=== PATIENT | male | born 1945 | race Caucasian/White ===

== ENCOUNTER → 2017-05-11 | Outpatient (CLI) | payer OTHER | LOC: EDSTATUS 11:59 → CIMAGING 16:44 | PROVIDERS: ATTEND Physician Assistant | DX: K59.00 Constipation, unspecified (principal); R10.9 Unspecified abdominal pain | CPT/HCPCS: 74020-PO ==

== ENCOUNTER → 2017-06-10 | Outpatient (CLI) | payer OTHER ==
[~2017-06-10] MED LIST: GADOBUTROL 10 ML VIAL IVP ONE
== END ==
LOC: FIMAGING 14:09
PROVIDERS: ATTEND Internal Medicine Hematology & Oncology
DX: M50.31 Other cervical disc degeneration, high cervical region (principal); M50.321 Other cervical disc degeneration at C4-C5 level; M50.322 Other cervical disc degeneration at C5-C6 level; M50.323 Other cervical disc degeneration at C6-C7 level; M12.88 Other specific arthropathies, not elsewhere classified, other specified site; M48.02 Spinal stenosis, cervical region; M99.71 Connective tissue and disc stenosis of intervertebral foramina of cervical region; C61 Malignant neoplasm of prostate
CPT/HCPCS: 72156; A9585

== ENCOUNTER 2017-06-29 12:27 | Inpatient (IN) | payer OTHER ==
--- NOTE | 2017-06-29 12:49 | EDPHY ---
H & P Time Seen by Provider: 06/29/17 12:48 HPI/ROS: Chief complaint. Rectal pain and diarrhea HPI. 72-year-old male states for prostate cancer. Much of his treatment has been at [facility]. He is also seeing Sujatha Ingram at [facility]. The past 3-6 weeks he has had change in bowel movements and has had increasing reliance using suppositories. He saw Dr. Rodriguez last week who did a digital exam and he has had increased frequency of bowel movements since. 3 days ago he had diarrhea and then had mucus discharge yesterday. At 2:00 a.m. he felt he had a blockage in was not passing gas or stool. He had some nausea but no vomiting. He tried a glycerin suppository this morning with production of gas and stool. On June 08 the also had a catheter change and developed urinary tract infection was treated with Bactrim. He has been having bladder spasms and then restarted Bactrim 4 days ago as a phone in prescription from urologist. Blood work last week showed decreased hemoglobin and hematocrit. He has not had any blood per rectum. He is concerned about the diarrhea and mucous discharge. He feels his rectum is quite inflamed. Otherwise he has had no fever, chest pain, shortness of breath, abdominal pain ROS Constitutional. no fever/chills, no weakness Eyes. no problems with vision ENT. no sore throat, no nasal drainage Cardiovascular. no chest pain Respiratory. no shortness of breath, no cough Abdominal. Nausea and diarrhea . Bladder spasms with catheter and being treated for urinary tract infection MS. no calf pain/swelling, no neck/back pain, no joint pain Skin. no rash Lymph. no swollen glands Neuro. no headache, no dizziness, no difficulty walking or with speech Past Medical/Surgical History: Metastatic prostate cancer, hypertension Social History: , nonsmoker, no alcohol Smoking Status: Never smoked Physical Exam: General Appearance: Alert well-developed male moderate distress vital signs are stable Eyes: Pupils equal and round no pallor or injection. ENT, Mouth: Mucous membranes are moist. Respiratory: There are no retractions, lungs are clear to auscultation. Cardiovascular: Regular rate and rhythm. Gastrointestinal: Abdomen is soft and nontender, no masses, bowel sounds normal. Rectal exam shows brown stool. I do not feel particular tightness in the rectum. I do not feel any masses. Neurological: Awake and alert, sensory and motor exams grossly normal. Skin: Warm and dry, no rashes. Musculoskeletal: Neck is supple nontender. Extremities symmetrical, full range of motion. Psychiatric: Patient is oriented X 3, there is no agitation. Constitutional: Initial Vital Signs Temperature (C) 36.9 C 06/29/17 12:32 Heart Rate 57 L 06/29/17 12:32 Respiratory Rate 14 06/29/17 12:32 Blood Pressure 156/77 H 06/29/17 12:32 O2 Sat (%) 98 06/29/17 12:32 O2 Delivery Mode Room Air Allergies/Adverse Reactions: amoxicillin [From Augmentin] Allergy (Verified 06/29/17 12:30) clavulanic acid [From Augmentin] Allergy (Verified 06/29/17 12:30) Medical Decision Making - Diagnostics Imaging Results: Imaging Impressions Abdomen CT 06/29/17 15:44 Impression: 1. Concentric abnormal thickening of the rectum below the peritoneal reflection , most concerning for infiltrative neoplasm (with a segmental colitis considered less likely); endoscopic correlation is recommended. There is also a 1.4 cm right perirectal lymph node, as well as some nonspecific upper abdominal lymph nodes seen near the celiac axis and the precaval space. 2. Mild prostate gland enlargement with the provided history of prostate cancer. 3. Osteoblastic lesions concerning for metastases. Correlation with a PSA value is suggested. 4. Nonobstructive left nephrolithiasis with a simple-appearing lower pole left renal cortical cyst. Findings were discussed with KANDICE HOLLOWAY MD at 17:49, on 06/29/2017. CT abdomen with IV contrast shows a circumferential rectal hourglass shaped lesion in the rectum. There is upstream constipation. This concerning for rectal cancer Procedures: Patient would like to apply lidocaine jelly prior to rectal exam. He self administers lidocaine jelly. In discussion of obtaining stool for further studies he tells me he needs a glycerin suppository to produce any stool. He is given a glycerin suppository ED Course/Re-evaluation: IV normal saline. Serial evaluations patient is stable. The patient and I and his discussed imaging and lab results. We talked about treatment plan and the patient is offered admission. I have spoken to Dr. Rodriguez regarding admission. Dr. Rodriguez is willing to admit the patient. The patient and his would like to talk further about this. At 7:30 p.m. the patient his decided that he would like to be admitted. He tells me his goals are to have a colorectal specialist as well as to be guaranteed to have intact rectum and urinary symptoms when his prostate cancer treatment is over. The patient and I discussed that there can be no guarantees and that there is no colorectal surgeon here in [place]. He would still like to be admitted and have consultation with Dr. Rodriguez I have again discussed the patient's case with Dr. Rodriguez and he agrees to admission. Differential Diagnosis: Patient with metastatic prostate cancer and having bowel symptoms with intermittent diarrhea. It appears that he has a narrowing and lesion in the rectum consistent with either rectal cancer or spread of prostate cancer. Dr. Rodriguez feels the patient needs a colostomy. The patient is not really quite ready to have a colostomy but would is having enough symptoms that he will be admitted. - Data Points Laboratory Results: Laboratory Results 06/29/17 14:10 06/29/17 14:10 06/29/17 06/29/17 06/29/17 15:24 14:10 14:10 WBC 6.47 10^3/uL 10^3/uL (3.80-9.50) RBC 3.97 10^6/uL L 10^6/uL (4.40-6.38) Hgb 12.1 g/dL L g/dL (13.7-17.5) Hct 34.8 % L % (40.0-51.0) MCV 87.7 fL fL (81.5-99.8) MCH 30.5 pg pg (27.9-34.1) MCHC 34.8 g/dL g/dL (32.4-36.7) RDW 13.5 % % (11.5-15.2) Plt Count 164 10^3/uL 10^3/uL (150-400) MPV 10.4 fL fL (8.7-11.7) Neut % (Auto) 66.7 % % (39.3-74.2) Lymph % (Auto) 21.6 % % (15.0-45.0) [place] % (Auto) 7.6 % % (4.5-13.0) Eos % (Auto) 3.1 % % (0.6-7.6) Baso % (Auto) 0.8 % % (0.3-1.7) Nucleat RBC Rel Count 0.0 % % (0.0-0.2) Absolute Neuts (auto) 4.32 10^3/uL 10^3/uL (1.70-6.50) Absolute Lymphs (auto) 1.40 10^3/uL 10^3/uL (1.00-3.00) Absolute Monos (auto) 0.49 10^3/uL 10^3/uL (0.30-0.80) Absolute Eos (auto) 0.20 10^3/uL 10^3/uL (0.03-0.40) Absolute Basos (auto) 0.05 10^3/uL 10^3/uL (0.02-0.10) Absolute Nucleated RBC 0.00 10^3/uL 10^3/uL (0-0.01) Immature Gran % 0.2 % % (0.0-1.1) Immature Gran # 0.01 10^3/uL 10^3/uL (0.00-0.10) Sodium 143 mEq/L mEq/L (134-144) Potassium 4.0 mEq/L mEq/L (3.5-5.2) Chloride 107 mEq/L mEq/L (97-110) Carbon Dioxide 25 mEq/l mEq/l (22-31) Anion Gap 11 mEq/L mEq/L (8-16) BUN 13 mg/dL mg/dL (7-23) Creatinine 0.9 mg/dL mg/dL (0.7-1.3) Estimated GFR > 60 Glucose 85 mg/dL mg/dL (70-100) Calcium 9.4 mg/dL mg/dL (8.5-10.4) Total Bilirubin 0.5 mg/dL mg/dL (0.1-1.4) Conjugated Bilirubin 0.3 mg/dL mg/dL (0.0-0.5) Unconjugated Bilirubin 0.2 mg/dL mg/dL (0.0-1.1) AST 34 IU/L IU/L (17-59) ALT 47 IU/L IU/L (21-72) Alkaline Phosphatase 73 IU/L IU/L (38-126) Total Protein 6.5 g/dL g/dL (6.3-8.2) Albumin 3.7 g/dL g/dL (3.5-5.0) Urine Color YELLOW Urine Appearance MODERATELY TURBID Urine pH 6.0 (5.0-7.5) Ur Specific [place] 1.004 (1.002-1.030) Urine Protein NEGATIVE (NEGATIVE) Urine Ketones NEGATIVE (NEGATIVE) Urine Blood 1+ H (NEGATIVE) Urine Nitrate NEGATIVE (NEGATIVE) Urine Bilirubin NEGATIVE (NEGATIVE) Urine Urobilinogen NEGATIVE EU EU (0.2-1.0) Ur Leukocyte Esterase TRACE H (NEGATIVE) Urine RBC 1-3 /hpf /hpf (0-3) Urine WBC 1-3 /hpf /hpf (0-3) Ur Epithelial Cells NONE SEEN /lpf /lpf (NONE-1+) Urine Bacteria 4+ /hpf H /hpf (NONE SEEN) Urine Mucus TRACE /lpf /lpf (NONE-1+) Urine Glucose NEGATIVE (NEGATIVE) Stool Occult Bld Scrn C. difficile Tox (PCR) 06/29/17 13:30 WBC RBC Hgb Hct MCV MCH MCHC RDW Plt Count MPV Neut % (Auto) Lymph % (Auto) [place] % (Auto) Eos % (Auto) Baso % (Auto) Nucleat RBC Rel Count Absolute Neuts (auto) Absolute Lymphs (auto) Absolute Monos (auto) Absolute Eos (auto) Absolute Basos (auto) Absolute Nucleated RBC Immature Gran % Immature Gran # Sodium Potassium Chloride Carbon Dioxide Anion Gap BUN Creatinine Estimated GFR Glucose Calcium Total Bilirubin Conjugated Bilirubin Unconjugated Bilirubin AST ALT Alkaline Phosphatase Total Protein Albumin Urine Color Urine Appearance Urine pH Ur Specific [place] Urine Protein Urine Ketones Urine Blood Urine Nitrate Urine Bilirubin Urine Urobilinogen Ur Leukocyte Esterase Urine RBC Urine WBC Ur Epithelial Cells Urine Bacteria Urine Mucus Urine Glucose Stool Occult Bld Scrn NEGATIVE (NEGATIVE) C. difficile Tox (PCR) TNP Medications Given: Discontinued Medications Glycerin (Glycerin Adult) 1 each [place] ONCE ONE Stop: 06/29/17 13:33 Last Admin: 06/29/17 17:29 Dose: Not Given Departure - Departure Disposition: [facility] In[facility] Acute Clinical Impression: Rectal abnormality, Prostate cancer metastatic to bone Condition: Fair Referrals: GAL ROBERTSON [Primary Care Provider] - As per Instructions
[2017-06-29] MEDS ORDERED: NS 1,000 ML IV ONE (13:26)
[2017-06-29] MEDS ORDERED: GLYCERIN ADULT 1 EACH SUPP PR ONE (13:32)
[2017-06-29 14:23] LABS: PLATELET COUNT 164 10^3/uL (150-400)
[2017-06-29] MEDS ORDERED: IOPAMIDOL (ISOVUE-300) 100 ML BTL ONE (15:50)
[2017-06-29] MEDS ORDERED: HYDROmorphONE/DILAUDID 1 MG/ML INJ IVP PRN (21:45)
[2017-06-29] MEDS ORDERED: ONDANSETRON 4 MG/2 ML VIAL IVP PRN (21:45)
[2017-06-29] MEDS ORDERED: LOTEPREDNOL 0.5% OPHT GEL 5GM EACHEYE PRN (21:45)
[2017-06-29] MEDS ORDERED: OXYBUTYNIN CHLORIDE 5 MG TAB PO PRN (21:45)
[2017-06-29] MEDS ORDERED: ACETAMINOPHEN 325 MG TAB PO PRN (21:45)
[2017-06-29] MEDS ORDERED: DIAZEPAM 5 MG TAB PO PRN (21:45)
[2017-06-29] MEDS ORDERED: LORazepam 1 MG TAB PO PRN (21:45)
--- NOTE | 2017-06-29 22:21 | GHP ---
[f rep st] HISTORY AND PHYSICAL DATE OF ADMISSION: 06/29/2017 CHIEF COMPLAINT: Rectal obstruction. HISTORY OF PRESENT ILLNESS: This is a 72-year-old male with history of stage IV metastatic prostate cancer who was seen by Dr. Rodriguez on Wednesday in clinic for rectal stenosis. He had a rectal exam do and since the exam had frequent stools. Today, he states that he felt obstructed. He strained to pass a small amount of stool this morning. He had diarrhea on Wednesday. He has been eating very nidhi le. He denies any pain at the moment. He has been having some arm weakness attributed to cervical s pondylosis. The patient is followed by Dr. Ingram locally for his prostate cancer and also seeks care outside of [place]. PAST MEDICAL HISTORY: 1. Stage IV metastatic prostate cancer. 2. Chronic Real catheter and a urinary tract infection, currently on Bactrim. 3. Hypertension. 4. Cervical spondylosis. 5. Bilateral lower extremity neuropathy. MEDICATIONS: Please refer to [facility] for details. ALLERGIES: Augmentin, but not allergic to penicillin. SOCIAL HISTORY: He is and lives in [place]. He denies any alcohol, tobacco, or illicit drug u se. FAMILY HISTORY: Reviewed and noncontributory. REVIEW OF SYSTEMS: Comprehensive 10-point review of systems was done and is negative, except for as mentioned in the HPI. PHYSICAL EXAMINATION: VITAL SIGNS: Blood pressure 172/75, heart rate 75, respiratory rate 16, O2 sa turation 95% on room air. Temperature afebrile. GENERAL: No acute distress. HEAD: Normocephalic, atraumatic. EYES: PERRLA. Sclerae anicteric. MOUTH: Moist mucous membranes. NECK: Supple. No lymphadenopathy. CARDIOVASCULAR: S1, S2. No murmurs, rubs, clicks, or gallops. No JVD. No lower extremity edema. PULMONARY: Lungs are clear. No wheezes, rales, or rhonchi. ABDOMEN: Soft, nont say, nondistended. No guarding or rebound tenderness. Normoactive bowel sounds. EXTREMITIES: No clubbing or cyanosis. NEUROLOGIC: Cranial nerves 2-12 grossly intact. No focal motor or sensory d eficits. SKIN: Clear. No rashes. DIAGNOSTICS: CT of the abdomen and pelvis was reviewed, showing concentric abnormal thickening of th e rectum below the peritoneal reflection most concerning for infiltrative neoplasm. Please see repor t for full details. WBC 6.47, hemoglobin 12.1, hematocrit 34.8, platelets 164. Sodium 143, potassiu m 4, chloride 107, BUN 13, creatinine 0.9, glucose 85. LFTs unremarkable. UA: 1+ blood, trace leuk ocyte esterase, 4+ bacteria. Stool occult blood was negative. ASSESSMENT AND PLAN: This is a 72-year-old male with stage IV prostate cancer on Zytiga and Lupron p resenting with: 1. Rectal obstruction with CT showing thickening of the rectum most likely due to invasive prostate cancer. Plan: The patient was seen by Dr. Americo Rodriguez in the emergency department, who offered di verting colostomy which the patient does not want to do before getting a second opinion. At this belén e, the patient would like to have a rectal biopsy and possible repeat prostate biopsy in the morning. The patient also requests having an enema in the morning, which will be ordered. He states that hi s rectal area is quite tender and has requested some IV narcotics to be done prior to the enema, whic h sounds reasonable. We will order IV Dilaudid to be done before the enema. 2. Recently treated urinary tract infection. Currently on Bactrim. Plan: Will send urine for cult ure. 3. The patient requests to be full code status. /[id number]/MODL
[2017-06-29] MEDS: DOCUSATE SODIUM 100 MG CAP PO SCH (22:39)
[2017-06-29] MEDS: POLYETHYLENE GLYCOL 3350 17 GM PKT PO SCH (22:40)
--- NOTE | 2017-06-30 00:06 | SOAPPROG ---
SOAP Progress Note Assessment/Plan: Assessment: 72 MALE WITH METASTATIC PROSTATE CANCER PRESENTING WITH WORSENING RECTAL OBSTRUCTION PT HAS REFUSED COLOSTOMY DESPITE HIS GREAT DIFFICULTY HAVING A BOWEL MOVEMENT ABDOMEN IS SOFT AND SLIGHTLY DISTENDED WITH ACTIVE BOWEL SOUNDS RECTAL EXAM REVEALS A TIGHT ANAL CANAL WITH OBVIOUS CIRCUMFERENTIAL TUMOR CHEST CLEAR/COR REGULAR RHYTHM IMPRESSION: NEAR COMPLETE RECTAL OBSTRUCTION SECONDARY TO INVASIVE PROSTATE CANCER/PATIENT NEEDS A COLOSTOMY BUT HE IS REFUSING AT THIS TIME Plan: ADMIT FOR OBSERVATION, ENEMA, POSSIBLE PORT PLACEMENT, FLEX SIG AND RECTAL BIOPSY 06/30/17 00:04 07/02/17 19:12 Objective: Vital Signs Temp Pulse Resp BP Pulse Ox 36.9 C 56 L 16 124/76 H 93 06/29/17 21:59 06/29/17 21:59 06/29/17 21:59 06/29/17 21:59 06/29/17 21:59 06/28/17 06/29/17 06/30/17 05:59 05:59 05:59 Intake Total 1000 Output Total 850 Balance 150 ICD10 Worksheet Patient Problems: Problems Problem Status Onset Prostate cancer metastatic to bone Acute Rectal abnormality Acute
--- NOTE | 2017-06-30 04:41 | PDMN ---
Medical Necessity Medical necessity: poss. pending [id number] bowel sgy: pt with rectal obstruction awaiting 2nd opinion, further monitoring, eval needed -pending biopsy in am
[2017-06-30] MEDS: GABAPENTIN 300 MG CAP PO SCH ×2 (05:03→11:57)
[2017-06-30] MEDS ORDERED: Abiraterone Acetate [Zytiga] 250 MG PO SCH (07:00)
[2017-06-30] MEDS ORDERED: MULTIVITAMINS 1 EACH TAB PO SCH (09:00)
[2017-06-30] MEDS ORDERED: OMEGA-3 FATTY ACIDS 1,000 MG CAP PO SCH (09:00)
[2017-06-30] MEDS ORDERED: TAMSULOSIN HCL 0.4 MG CAP PO SCH (09:00)
[2017-06-30] MEDS ORDERED: ALLOPURINOL 300 MG TAB PO SCH (09:00)
[2017-06-30] MEDS ORDERED: ESCITALOPRAM OXALATE 10 MG TAB PO SCH (09:00)
[2017-06-30] MEDS ORDERED: NIACIN 500 MG TAB PO SCH (09:00)
[2017-06-30] MEDS ORDERED: BENEFIBER/NUTRISOURCE FIBER PKT 1 EACH PO SCH (09:00)
[2017-06-30] MEDS ORDERED: SULFAMETHOX/TMP 800/160 MG 1 TAB PO SCH (09:00)
[2017-06-30] MEDS ORDERED: predniSONE 5 MG TAB PO SCH (09:00)
[2017-06-30] MEDS ORDERED: ENOXAPARIN 40 MG/0.4 ML SYR SC SCH (09:00)
[2017-06-30] MEDS ORDERED: LISINOPRIL 10 MG TAB PO SCH (09:00)
[2017-06-30] MEDS: DOCUSATE SODIUM 100 MG CAP PO SCH (09:30)
[2017-06-30] MEDS: POLYETHYLENE GLYCOL 3350 17 GM PKT PO SCH (09:31)
[2017-06-30] MEDS ORDERED: LORazepam 2 MG/ML INJ IVP ONE (10:53)
[2017-06-30] MEDS ORDERED: ERTAPENEM 1 GM VIAL IVP ONE ×2 (13:01→15:30)
--- NOTE | 2017-06-30 13:28 | HOSPPROG ---
Hospitalist Progress Note Assessment/Plan: 72y male with c/o rectal pain. First encounter, chart reviewed. D/w surgery. #Rectal thickening bx today enema likely CA per surgery needs ostomy will get second opinion #Rectal obstruction needs ostomy enema #Recent UTI cont meds #Hx of prostate CA port placement today in OR #Dispo will hopefully dc today after surgery Subjective: Having diarrhea. Still uncomfortable. Objective: Vital Signs Temp Pulse Resp BP Pulse Ox 37.1 C 62 18 104/68 93 06/30/17 10:57 06/30/17 10:57 06/30/17 10:57 06/30/17 10:57 06/30/17 10:57 06/29/17 06/30/17 07/01/17 05:59 05:59 05:59 Intake Total 1000 Output Total 1650 Balance -650 - Physical Exam Constitutional: no apparent distress, appears nourished, uncomfortable Eyes: PERRL, anicteric sclera, EOMI Ears, Nose, Mouth, Throat: moist mucous membranes, hearing normal, ears appear normal Cardiovascular: regular rate and rhythym, No JVD, No edema Respiratory: no respiratory distress, no rales or rhonchi, reduced air movement Gastrointestinal: normoactive bowel sounds, No tenderness, No ascites Skin: warm, normal color, No mottled Musculoskeletal: normal joint ROM, no joint effusions, generalized weakness Neurologic: AAOx3 Psychiatric: not anxious, not encephalopathic, thought process linear ICD10 Worksheet Patient Problems: Problems Problem Status Onset Rectal abnormality Acute Prostate cancer metastatic to bone Acute
--- NOTE | 2017-06-30 14:14 | SOAPPROG ---
SOAP Progress Note Assessment/Plan: Assessment/Plan: 72 Y M prostate CA c obstructing rectal mass, metastatic prostate CA vs new primary rectal CA. To OR today for port and rectal biopsies. Discussed with Drs. Rodriguez and Sujatha Ingram today. Risks and options discussed in detail with patient and . Consent signed and in chart. Ppx abx ordered. Recommended colostomy but patient wishes to have second opinion. He has plans to see a colorectal surgeon in [place] tomorrow. He is hopeful for discharge this evening after surgery to make his appointment in the morning. S: diarrhea and rectal pain and pressure. O: alert, nad no jaundice mmm no wob rrr abd softly bloated rectal deferred 06/30/17 14:10 Objective: Vital Signs Temp Pulse Resp BP Pulse Ox 37.1 C 62 18 104/68 93 06/30/17 10:57 06/30/17 10:57 06/30/17 10:57 06/30/17 10:57 06/30/17 10:57 06/29/17 06/30/17 07/01/17 05:59 05:59 05:59 Intake Total 1000 Output Total 1650 Balance -650 ICD10 Worksheet Patient Problems: Problems Problem Status Onset Prostate cancer metastatic to bone Acute Rectal abnormality Acute
[2017-06-30] MEDS ORDERED: BACITRACIN ZINC 14.2 GM OINTTUBE TP ONE (15:05)
[2017-06-30] MEDS ORDERED: BUPIVACAINE 0.5% 30 ML SDV ONE (15:06)
[2017-06-30] MEDS ORDERED: LIDOCAINE 1% 300 MG/30 ML SDV ONE (15:06)
[2017-06-30] MEDS ORDERED: LR 1,000 ML IV ONE (15:14)
[2017-06-30] MEDS ORDERED: MIDAZOLAM 2 MG/2 ML VIAL IVP ONE (15:18)
--- NOTE | 2017-06-30 15:19 | GCON ---
[f rep st] CONSULTATION ONCOLOGY CONSULTATION NOTE DATE OF CONSULTATION: 06/30/2017 REASON FOR CONSULTATION: Metastatic prostate carcinoma. HISTORY OF PRESENT ILLNESS: The patient is a 72-year-old gentleman who is followed by my partner, Dr Deborah Ingram. He was diagnosed with metastatic prostate carcinoma recently. His history dates back to May of 2015. He had a mildly elevated PSA. This was initially followed. In July of s year, he developed prostatitis symptoms. His PSA was markedly elevated at that time. He had a pro state biopsy done which revealed a Annabel 5 + 5 equals 10 adenocarcinoma. The initial pathology sug gested small cell features. A staging CT revealed local regional disease with involvement of pelvic bones and extension into the rectum. The patient was initially treated with bicalutamide, and Lupron . He was then started on Zytiga in March. He has developed urinary retention and has a chronic Real catheter in place. More recently, he has been seen by Dr. Katie Mccabe at [facility]. Consideration of c abazitaxel and carboplatin was recommended. The patient recently established with Dr. Ingram locally . Recently, he has had increasing difficulty moving his bowels, suggestive of a pending rectal obstruct ion. He presented to the emergency room yesterday with obstructive symptoms. A CT of the abdomen an d pelvis was performed. This revealed concentric abnormal thickening throughout the rectum below the level of peritoneal reflection. Mild prostatic enlargement was noted. Multiple osteoblastic lesion s were noted. There was nonobstructive left nephrolithiasis. The patient is scheduled to undergo a flexible sigmoidoscopy with biopsy later today to confirm metas tatic prostate carcinoma as the cause of his rectal obstruction. He has met with Dr. Rodriguez of general surgery. A palliative diverting colostomy has been recommended. The patient was initially reluctant to consider this procedure, but given the severity of his sympt oms has now decided to proceed, and this is tentatively scheduled for Wednesday. The patient states he plans to meet with a colorectal surgeon at [facility] tomorrow to discuss long- term options including the option of eventual long-term reanastomosis. When seen today, his is at the bedside. Dr. Mccabe's PA is also present by telephone (Vanessa). PAST MEDICAL HISTORY: 1. Metastatic prostate carcinoma as outlined above. 2. Cervical spine stenosis with associated upper extremity weakness. 3. Left arm radiculopathy. 4. History of bilateral nephrolithiasis. 5. History of sarcoidosis. 6. Gout. 7. Hypertension. 8. Hyperlipidemia. 9. Remote history of malaria (1989). PAST SURGICAL HISTORY: 1. Bronchoscopy 1969. 2. Vitrectomy for uveitis, right eye. SOCIAL HISTORY: The patient is to his . He has a remote history of smoking. He and his live in [place], [place]. He has no children. REVIEW OF SYSTEMS: As outlined above. Denies abdominal pain. Denies chest pain or cough. Denies b one pain at the current time. Denies fevers or chills. The patient does have a chronic indwelling F oley in place. Denies extremity swelling or edema. PHYSICAL EXAMINATION: GENERAL APPEARANCE: Patient is sitting comfortably on the edge of the bed. H e is in no acute distress. HEENT: Pupils are equal. Sclerae nonicteric. ABDOMEN: Soft, nontender , nondistended. RECTAL: Digital rectal exam is deferred. EXTREMITIES: No extremity swelling or kameron ma. NEUROLOGIC: Patient is alert, oriented, and appropriate. IMAGING DATA: CT results as per HPI. LABORATORY STUDIES: White count 6.4, hemoglobin 12.1. Platelet count is 164,000. BUN 13, creatinin e 0.9. Liver function tests are unremarkable. A serum CEA was drawn and is normal with a value of 2 .43. IMPRESSION: 1. Metastatic high-grade prostate carcinoma. 2. Rectal obstruction, likely due to infiltration from #1. 3. Urinary retention with chronic indwelling Real catheter. 4. Osseous metastatic disease secondary to #1. The patient is a pleasant 72-year-old gentleman with high-grade metastatic prostate carcinoma who pre sents with worsening rectal obstruction due to tumor infiltration. The patient is scheduled to under go a flexible sigmoidoscopy later today. Biopsies will be performed. I had a fairly lengthy discussion with the patient and his concerning his options. Dr. Mccabe 's physician's district administrative assistant, Vanessa, was also present by telephone. I explained to the patient that at this point, he has evidence of fairly high-grade obstruction, whic h I do not believe would be quickly palliated with either radiation or chemotherapy. I agree with Dr Deborah Rodriguez's assessment that the patient would be best served with a palliative diverting colostomy at t his point. After much thought, the patient states he is now considering this and has tentatively kate eduled this to be done this coming Wednesday. He does inform me he plans to seek an opinion of a colorectal surgeon at [facility] tomorrow to dis cuss his long-term options in terms of reanastomosis or further surgery. Again, he does plan to proc eed with a diverting colostomy later this week. Assuming that the patient's biopsy confirms high-grade prostate carcinoma, chemotherapy will be start ed within the next 2-3 weeks. This will be done by Dr. Ingram in the outpatient setting. She will c onfer with Dr. Mccabe at [facility] to decide on a final regimen. The option of cabazitaxel and c arboplatin has been discussed. If the patient's biopsy demonstrates small cell features, then certai nly carboplatin, etoposide could be considered. The patient would like to be discharged later today after his flexible sigmoidoscopy. He has met [facility] Dr. Rodriguez and again evidently is tentatively scheduled for surgery on Wednesday. He will follow up [facility] Dr. Ingram. Dr. Ingram is aware of his admission and we have discussed his case. I think sending his biopsy specimen for a foundation profile would be advisable in terms of expanding his future treatment options. The patient and his had multiple questions which were answered to their satisfaction. He will follow up with Dr. Ingram after discharge. Total time for today's visit was approximately 60 minutes of which greater than 50% was spent in coun seling and care coordination. /[id number]/MODL
--- NOTE | 2017-06-30 15:22 | PDANEPAE ---
ANE Past Medical History - Cardiovascular History Hx Hypertension: No Hx Arrhythmias: No Hx Chest Pain: No Hx Coronary Artery / Peripheral Vascular Disease: No Hx CHF / Valvular Disease: No Hx Palpitations: No - Pulmonary History Hx COPD: No Hx Asthma/Reactive Airway Disease: No Hx Recent Upper Respiratory Infection: No Hx Oxygen in Use at Home: No Hx Sleep Apnea: Yes Sleep Apnea Screening Result - Last Documented: Positive - Endocrine History Hx Diabetes: No Hypothyroid: No Hyperthyroid: No Obesity: no - GI History GERD: no Hx Gastrointestinal Disorders: Yes - Chronic Pain History Chronic Pain: No ANE Review of Systems Review of Systems: - Exercise capacity METS (RN): 5 METS - Systems Gastrointestinal: Reports: rectal pain ANE Patient History - Allergies Allergies/Adverse Reactions: amoxicillin [From Augmentin] Allergy (Verified 06/29/17 12:30) clavulanic acid [From Augmentin] Allergy (Verified 06/29/17 12:30) - Home Medications Home Medications: Abiraterone Acetate [Zytiga] 1,000 mg PO DAILY 06/29/17 [Last Taken Unknown] Allopurinol [Allopurinol 300 MG (RX)] 300 mg PO DAILY 06/29/17 [Last Taken Unknown] Diazepam [Valium 10 MG (*)] 10 mg PO DAILY PRN 06/29/17 [Last Taken 06/29/17] Docusate Sodium [Colace 100 MG (*)] 100 mg PO TID 06/29/17 [Last Taken Unknown] Escitalopram Oxalate [Lexapro] 10 mg PO DAILY 06/29/17 [Last Taken 06/29/17] Gabapentin [Neurontin 300 MG (*)] 600 mg PO QID 06/29/17 [Last Taken 06/28/17] Guar Gum [Benefiber/Nutrisource Fiber (*)] 1 each PO DAILY 06/29/17 [Last Taken 06/29/17] Herbals/Supplements -Info Only 1 ea PO DAILY 06/29/17 [Last Taken Unknown] Ibuprofen [Motrin (*)] 200 - 600 mg PO DAILY PRN 06/29/17 [Last Taken 06/28/17] LORazepam [Ativan (*)] 1 mg PO DAILY PRN 06/29/17 [Last Taken 06/29/17] Leuprolide Acetate [Lupron Depot] 7.5 mg IM Q30D 06/29/17 [Last Taken Unknown] Lisinopril [Zestril 10 mg (*)] 10 mg PO DAILY 06/29/17 [Last Taken 06/29/17] Loteprednol 0.5% [Lotemax0.5% Gel] 1 drops EACHEYE QID PRN 06/29/17 [Last Taken Unknown] Multivitamins [Multivitamin (*)] 1 each PO DAILY 06/29/17 [Last Taken Unknown] Niacin [Niacin 500 mg (*)] 500 mg PO DAILY 06/29/17 [Last Taken Unknown] Ballantine-3 Fatty Acids [Fish Oil 1000 mg (*)] 1,000 mg PO BID 06/29/17 [Last Taken Unknown] Oxybutynin Chloride [Ditropan 5mg (RX)] 5 mg PO DAILY PRN 06/29/17 [Last Taken 06/29/17] Polyethylene Glycol 3350 [Miralax 17 gm (*)] 17 gm PO TID 06/29/17 [Last Taken 06/29/17] Sulfamethox/Tmp 800/160 mg [Bactrim Ds] 1 tab PO BID 06/29/17 [Last Taken ] Tamsulosin HCl [Flomax 0.4 MG (*)] 0.4 mg PO DAILY 06/29/17 [Last Taken Unknown] Zolpidem Tartrate [Ambien 5MG (*)] 5 - 10 mg PO HS 06/29/17 [Last Taken 06/28/17 ] predniSONE 5 mg PO BID 06/29/17 [Last Taken 06/29/17 AM] - NPO status NPO Since - Liquids (Date): 06/30/17 NPO Since - Liquids (Time): 09:00 NPO Since - Solids (Date): 06/29/17 NPO Since - Solids (Time): 00:00 - Anes Hx Anes Hx: no prior problems - Smoking Hx Smoking Status: Never smoked - Alcohol Use Alcohol Use: Rarely - Family Anes Hx Family Anes Hx: none ANE Labs/Vital Signs - Labs Result Diagrams: 06/29/17 14:10 06/29/17 14:10 - Vital Signs Blood Pressure: 131/61 Heart Rate: 58 Respiratory Rate: 20 O2 Sat (%): 95 Height: 193.04 cm Weight: 99.79 kg ANE Physical Exam - Airway Neck exam: FROM Mallampati Score: Class 2 Mouth exam: normal dental/mouth exam - Pulmonary Pulmonary: no respiratory distress, no rales or rhonchi, clear to auscultation - Cardiovascular Cardiovascular: regular rate and rhythym, systolic murmur - ASA Status ASA Status: II
[2017-06-30] MEDS ORDERED: MIDAZOLAM 2 MG/2 ML VIAL ONE (15:29)
[2017-06-30] MEDS ORDERED: fentaNYL 100 MCG/2 ML INJ ONE ×3 (15:34→18:50)
[2017-06-30] MEDS ORDERED: ONDANSETRON 4 MG/2 ML VIAL ONE (15:35)
[2017-06-30] MEDS ORDERED: PROPOFOL 200 MG/20 ML VIAL ONE (15:35)
[2017-06-30] MEDS ORDERED: LIDOCAINE 2% 5 ML SDV ONE (15:36)
[2017-06-30] MEDS ORDERED: PROMETHAZINE HCL 25 MG/ML INJ IVP PRN (15:41)
[2017-06-30] MEDS ORDERED: ONDANSETRON 4 MG/2 ML VIAL IVP PRN (15:41)
[2017-06-30] MEDS ORDERED: NALOXONE HCL 0.4 MG/ML INJ IVP PRN (15:41)
[2017-06-30] MEDS ORDERED: fentaNYL 100 MCG/2 ML INJ IVP PRN (15:41)
[2017-06-30] MEDS ORDERED: OXYCODONE/APAP 5/325 TAB PO PRN (15:41)
[2017-06-30] MEDS ORDERED: ACETAMINOPHEN 500 MG TAB PO PRN (15:41)
[2017-06-30] MEDS ORDERED: LR 500 ML IV PRN (15:41)
[2017-06-30] MEDS ORDERED: HYDROCODONE/APAP 5/325 TAB PO PRN (15:41)
[2017-06-30] MEDS ORDERED: MEPERIDINE 25 MG/ML SYR IVP PRN (15:41)
--- NOTE | 2017-06-30 15:59 | ASMTCMCOM ---
CM Note CM Note Notes: Per RN and MD note, pt will be dc'd after procedure. He has an appt with a colorectal surgeon, and does have an appt for a diverting colostomy surgery later this week. Pt will dc home w/support of his and f/u outpt, CM available for any changes. Date Signed: 06/30/2017 03:59 PM Electronically Signed By:Keke Fair RN
[2017-06-30] MEDS ORDERED: epHEDrine SULFATE 10 MG/ML SYR ONE (16:21)
[2017-06-30] MEDS ORDERED: KETOROLAC 30 MG/1 ML SDV ONE (16:43)
[2017-06-30] MEDS ORDERED: THROMBIN (BOVINE) 5,000 UNIT VIAL TP ONE (17:38)
--- NOTE | 2017-06-30 17:49 | POSTOPPROG ---
Post Op Note Date of Operation: 06/30/17 Surgeon: Americo Rodriguez Anesthesiologist: Darrel Anesthesia: GET(General Endotracheal) Pre-op Diagnosis: metastatic prostate CA vs new rectal CA Procedure: 1. port placement with flouro 2. flx sig, rectal biopsies and dilitation Findings: good position and flow; tight rectal stritcure, ~1cm Inf/Abcess present in the surg proc area at time of surgery?: No EBL: Minimal Complications: none Specimen(s): rectal biopsies to pathology
--- NOTE | 2017-06-30 18:11 | POSTANESTH ---
Post Anesthetic Evaluation Cardiovascular Status: Normal, Stable Respiratory Status: Normal, Stable Level of Consciousness/Mental Status: Can Participate in Eval Pain Control: Adequate, Prn Tx Ordered Nausea/Vomiting Control: Adequate, Prn Tx Ordered Complications Possibly Related to Anesthesia: None Noted
[2017-06-30 19:17] VITALS: RESP 16
[2017-06-30 20:30] VITALS: BP 112/64; PULSE 68; TEMP 97.8; O2SAT 97
[2017-06-30] MEDS ORDERED: ZOLPIDEM TARTRATE 5 MG TAB PO SCH (21:00)
--- NOTE | 2017-07-01 08:47 | GOP ---
[f rep st] OPERATIVE REPORT DATE OF OPERATION: SURGEON: Americo Rodriguez MD PREOPERATIVE DIAGNOSIS: Rectal mass. POSTOPERATIVE DIAGNOSIS: Rectal mass, path pending. PROCEDURE PERFORMED: Exam under anesthesia, flexible sigmoidoscopy and rectal biopsies. FINDINGS: Patient was found to have extensive rectal infiltration circumferentially from the anal ve rge for at least 5 cm cephalad and extending from the prostate, possibly. The opening of the anal ca nal at the apex was less than 1 cm, requiring some dilatation for the flex sig. DESCRIPTION OF PROCEDURE: Patient was in the operating room under general endotracheal anesthesia by Dr. Rojo, he was placed in lithotomy position and prepped and draped in the usual sterile fas hion. Visual exam was done with the above-noted findings. A flex sig was introduced showing circumf erential disease and at the apex of this disease, the opening would barely permit passage of the flex ible sigmoidoscope. Slight dilatation of the scope to pass the mucosa above this area appeared to be intact and normal. There was no bowel prep so visibility was limited up above the obstruction. The scope was withdrawn and visually the area was dilated. Then under direct vision, several punch biop sies were taken circumference around the rectum and sent to pathology. Hemostasis appeared to be margy quate, although there was a little access to be able to do anything other than the biopsy. Some topi lori thrombin was placed in the rectal vault and the wound was dressed with some Xeroform gauze. He t olerated the procedure well. Blood loss from the procedure was negligible. There were no complicati ons. The wound was infiltrated with 0.5% Marcaine, taken to recovery room in good condition. FINAL IMPRESSION: A diffuse infiltrating malignancy in the rectum, probably more consistent with inv asive prostate cancer than a true rectal cancer, although final path is pending. Copy requested to: GAL ROBERTSON /[id number]/MODL
--- NOTE | 2017-07-01 11:08 | GOP ---
[f rep st] OPERATIVE REPORT DATE OF OPERATION: 06/30/2017 SURGEON: Americo Rodriguez MD ANESTHESIOLOGIST: Dr. MONDRAGON. PREOPERATIVE DIAGNOSIS: Metastatic prostate cancer. POSTOPERATIVE DIAGNOSIS: Metastatic prostate cancer. PROCEDURE PERFORMED: Left subclavian port placement with fluoroscopic guidance. FINDINGS: GOOD POSITION AND FLOW DESCRIPTION OF PROCEDURE: The patient was taken to the operating room where he received satisfactory general endotracheal anesthesia by , was placed in supine position, and prepped and draped in the usual sterile fashion. He was then placed in Trendelenburg. A single stick was made in the left subclavian vein. Guidewire was introduced, position was confirmed with fluoroscopy. A subcu pocket was made in the 2nd intercostal space. Port tubing was passed from that pocket to the subclavian insertion site, trimmed to the appropriate length using fluoroscopic guidance, introduced through the introducer sheath and dilator system into the right atrium. Good backflow was achieved. The catheter was flushed with heparin and saline. Port was secured to the fascia with 3-0 Vicryl. Pocket was closed with a running 3-0 Vicryl for the subcutaneous tissue and 4-0 Prolene subcuticular stitch for the skin. The entrance site was closed with Prolene mattress suture. All wounds were infiltrated with 0.5% Marcaine. He tolerated the procedure well, taken to recovery room in good condition. No complications. Blood loss negligible. Copy requested to: Dr. Breezy Juarez /[id number]/MODL MTDD
--- NOTE | 2017-07-01 12:08 | GCON ---
[f rep st] CONSULTATION DATE OF CONSULTATION: 06/29/2017 The patient is a 72-year-old male, well known to me who is under treatment at [facility] for metasta tic prostate cancer. He presents with near complete colon obstruction from metastatic prostate cance r, although possibility of a quechan rectal cancer has not been fully eliminated. He is coming in at t his time because of abdominal pain and near complete obstruction of his distal colon and rectum. He is known to have circumferential significant disease in the rectum, which he has been unaware of unti l just the last week. He has refused a colostomy for this. Attempted colonoscopy was unsuccessful be cause of the stenosis of his rectum. He is admitted at this time for evaluation and consideration fo r possible colostomy versus possible dilatation. He also wishes to proceed with port placement for c hemotherapy access and new rectal biopsy. He is followed by Dr. Sujatha Ingram here in [place]. PAST MEDICAL HISTORY: Includes hypertension, cervical degenerative disease, peripheral neuropathy, c hronic bladder infections secondary to chronic catheterization and metastatic prostate cancer. MEDICATIONS: Listed in the chart. He is about to begin chemotherapy for his prostate cancer. ALLERGIES: Augmentin. REVIEW OF SYSTEMS: Reveals no other major findings on a full 10-point review of systems other than t hose in the HPI and the past history, specifically does not smoke and denies any cardiac symptoms. FAMILY HISTORY: Noncontributory. PHYSICAL EXAMINATION: GENERAL: Reveals an alert, comfortable, 72-year-old male, in no acute distres s. HEAD and NECK: Reveals no icterus or adenopathy. No oral lesions. No thyromegaly. His neck was supple. CHEST: Clear and symmetric. CARDIAC: Regular rhythm. ABDOMEN: Soft, somewhat protuberant , nontender without hernias. IMPRESSION: Near complete rectal obstruction with an infiltrating malignancy, prostate versus rectal . PLAN: Admit for evaluation, some catharsis, possible colostomy, although the patient is, at present, refusing the colostomy. /[id number]/MODL
[2017-07-12] MEDS ORDERED: LEUPROLIDE ACETATE 7.5 MG IM SCH (09:00)
--- NOTE | 2017-07-27 13:37 | GDS ---
[f rep st] DISCHARGE SUMMARY DISCHARGE DIAGNOSES: 1. Metastatic prostate cancer. 2. Nearly obstructing rectal mass. 3. Chronic Real catheter with urinary tract infection. OTHER DIAGNOSES: Include hypertension, cervical spondylosis, and bilateral lower extremity neuropath y. PROCEDURES: 1. Left subclavian port placement with fluoroscopic guidance. 2. Exam under anesthesia with flexible sigmoidoscopy and rectal biopsies. INTRAOPERATIVE FINDINGS: The patient's port was in good position with good flow. Postoperative x-ra ys confirmed this. He was found to have extensive rectal infiltration circumferentially from the lorraine verge for at least 5 cm cephalad and extending from the prostate possibly. The opening of the an l at the apex was less than 1 cm requiring some dilatation for the flexible sigmoidoscopy. SPECIAL TESTS: CT scan of the abdomen and pelvis showed concentric abnormal thickening of the rectum below the peritoneal reflection and a 1.4 cm right perirectal lymph node and nonspecific upper abdom inal lymph node seen near the celiac access in the precaval space. There is mild prostate enlargemen t and osteoblastic lesions concerning for metastasis. Also, nonobstructive left nephrolithiasis. Pl ease see report for full details. CONSULTATIONS: 1. Americo Rodriguez, General Surgery. 2. Yinka Ly, Oncology. HOSPITAL COURSE: Mr. Wilkinson is a 72-year-old male who has been cared for at [facility] as well as [facility] for metastatic prostate cancer. He presented to the emerge ncy department with complaints of rectal pain and diarrhea. Prior to admission, he had been on Bactr im for bladder spasm and a suspected UTI. He was admitted by the hospitalist service. The patient was seen by Oncology and General Surgery. We recommended a diverting colostomy, which th e patient did not want to do before getting a 2nd opinion. The patient agreed to port as well as rec kaleb biopsies to rule out the possibility of a primary rectal cancer. These procedures were uncomplica madyson with findings as described above. Ultimately, pathology confirmed metastatic prostate cancer. T he patient was discharged to home in stable condition with plans for followup with his oncologist in [place] as well as oncologist and surgeons at [facility] [place]. /[id number]/MODL
== END 2017-06-30 21:00 | disposition home or self-care (01) | DRG 375 ==
LOC: F3E 21:24
PROVIDERS: ADMIT Surgery; ATTEND Family Medicine
PROC: 02HV33Z Insertion of Infusion Device into Superior Vena Cava, Percutaneous Approach (ICD-10-PCS; principal; 2017-06-30 15:30)
PROC: 0DBP8ZX Excision of Rectum, Via Natural or Artificial Opening Endoscopic, Diagnostic (ICD-10-PCS; principal; 2017-06-30 15:30)
DX: C78.5 Secondary malignant neoplasm of large intestine and rectum (principal); C61 Malignant neoplasm of prostate; C79.51 Secondary malignant neoplasm of bone; T83.511A Infection and inflammatory reaction due to indwelling urethral catheter, initial encounter; N39.0 Urinary tract infection, site not specified; I10 Essential (primary) hypertension; M47.812 Spondylosis without myelopathy or radiculopathy, cervical region; G62.9 Polyneuropathy, unspecified; N20.0 Calculus of kidney
CPT/HCPCS: C1788; J1170; J1335; J1642; J1885; J2060; J2250; J2405; J2704; J3010; Q9967

== ENCOUNTER → 2017-07-26 | Outpatient (CLI) | payer OTHER | LOC: FIMAGING 15:24 | PROVIDERS: ATTEND Internal Medicine Hematology & Oncology | DX: R22.41 Localized swelling, mass and lump, right lower limb (principal) ==

== ENCOUNTER → 2017-07-30 | Outpatient (CLI) | payer OTHER | LOC: FIMAGING 10:32 | PROVIDERS: ATTEND Internal Medicine Hematology & Oncology | DX: C61 Malignant neoplasm of prostate (principal); C79.51 Secondary malignant neoplasm of bone | CPT/HCPCS: 78306; A9503; J1642 ==

== ENCOUNTER → 2017-08-24 | Outpatient (CLI) | payer OTHER | LOC: FIMAGING 16:33 | PROVIDERS: ATTEND Internal Medicine Hematology & Oncology | DX: R22.42 Localized swelling, mass and lump, left lower limb (principal); C61 Malignant neoplasm of prostate ==